=== PATIENT | male | born 1975 | race Hispanic/Latino ===

== ENCOUNTER 2018-10-19 09:31 | Outpatient (CLI) | payer OTHER ==
--- NOTE | 2018-10-19 11:03 | RAD ---
THREE VIEW RIGHT ANKLE: Indication: Rheumatoid arthritis with swelling/edema. FINDINGS: There is mild soft tissue prominence. Mortise is intact. No acute osseous abnormality is identified. There are mild osteophytes. Small enthesophyte formation is seen at the calcaneus. IMPRESSION: 1. No acute osseous abnormality. 2. Scattered mild osteophytosis. 3. Mild soft tissue prominence. POS: C
--- NOTE | 2018-10-19 11:06 | RAD ---
LEFT KNEE FOUR VIEWS: 10/19/2018 HISTORY: Anterior knee pain. Swelling. Gout. COMPARISON: None. FINDINGS: Moderate medial compartment narrowing with subchondral sclerosis and osteophyte formation. Mild late ral compartment narrowing with osteophyte formation of the lateral tibial plateau. No knee joint eff usion. No displaced fracture or dislocation. Soft tissue swelling is suspected anterior to the knight lla and in the region of the patellar tendon. IMPRESSION: 1. Probable anterior soft tissue swelling. 2. Degenerative joint disease. 3. No acute fracture or knee joint effusion. POS: JOSH
== END 2018-10-19 09:32 | disposition home or self-care (01) ==
LOC: BICRAD 09:31
PROVIDERS: ATTEND Family Medicine
DX: M05.771 Rheumatoid arthritis with rheumatoid factor of right ankle and foot without organ or systems involvement (principal); M10.9 Gout, unspecified; M17.12 Unilateral primary osteoarthritis, left knee; M25.771 Osteophyte, right ankle